=== PATIENT | male | born 1960 | race Caucasian/White ===

== ENCOUNTER 2017-02-03 13:43 | Emergency (ER) | payer OTHER, MEDICARE ==
[~2017-02-03] VITALS: Ht 177.8 cm; Wt 90.7 kg
[~2017-02-03 13:43] MED LIST: CARDIZEM CD240 M1 PO; LOSARTAN POTAS100 M1 PO; NEXIUM 40MG40 MG PO; PERCOCET 325 MG1 TAB PO; TOPROL XL25 M1 PO; VENLAFAXINE HCL75 M2 PO; VIBRAMYCIN 100100 MG PO
--- NOTE | 2017-02-03 14:17 | ED CARDIAC/CP/PALPITATIONS ---
History of Present Illness General Chief Complaint: Chest Pain Stated Complaint: CP Source: patient, family, old records Exam Limitations: no limitations Vital Signs & Intake/Output Vital Signs & Intake/Output Vital Signs Date Time Temp Pulse Resp B/P B/P Pulse O2 O2 Flow FiO2 Mean Ox Delivery Rate 02/03 1915 98.5 102 20 164/92 98 Room Air 02/03 1724 97.4 96 20 168/94 98 Room Air 02/03 1530 103 20 158/90 94 Room Air 02/03 1453 100 20 175/114 99 Room Air 02/03 1358 99 176/102 05/ 1353 97.9 101 18 195/145 98 Allergies Coded Allergies: Penicillins (Severe, THROAT SWELLING 02/03/17) latex (Severe, THROAT SWELLING 02/03/17) Reconcile Medications Aspirin (Aspirin*) 81 MG TAB.CHEW 1 TAB PO QPM HEART HEALTH (Reported) Atorvastatin Calcium 20 MG TABLET 1 TAB PO QPM CHOLESTEROL (Reported) Diltiazem HCl (Cardizem Cd) 240 MG CAP.ER.24H 1 CAP PO BID HEART (Reported) Losartan Potassium 100 MG TABLET 1 TAB PO QPM HEART (Reported) Metoprolol Succ XL (Toprol XL) 25 MG TAB 1 TAB PO QPM HEART (Reported) Omeprazole 20 MG CAPSULE.DR 1 CAP PO QPM GI (Reported) Venlafaxine HCl (Venlafaxine HCl ER) 75 MG TAB.ER.24 1 TAB PO QPM MENTAL HEALTH (Reported) Triage Note: PT PRESENTS TO ER C/O OF RIGHT SIDED CHEST PAIN SINCE YESTERDAY. PT STATES PAIN IS VERY SHARP ON RIGHT OF CHEST. PT DENIES SOB AND N/V. PT HAS A HX OF AFIB AND HTN. EKG DONE ON ARRIVAL, PT RHTHYM SINUC TACH. HR OF 100 Triage Nurses Notes Reviewed? yes Onset: Abrupt Duration: day(s): (2), intermittent Timing: recent history Quality/Severity: moderate, aching Location: r sided Radiation: no radiation Activities at Onset: none Prior Chest Pain/Card Workup: no prior chest pain Nitro Today/Relief: 0.4 mg x 1, provided by ED Aspirin Today: 325 mg x 1, provided by ED Associated Symptoms: denies HPI: 56-year-old male with history of paroxysmal A. fib that required ablation hypertension alcohol abuse presents complaining of a right-sided chest pain for the past 2 days came on at rest intermittent in nature. He reports it as sharp. He denies any back or arm pain his history significant for a right shoulder repair surgery in December. The pain is not worse with range of motion of his shoulder. He denies shortness of breath or pain with inspiration on arrival patient arrives hypertensive tachycardic. He is not taken anything for his symptoms and states that he's been compliant with all his medications however takes them at nighttime. The patient denies abdominal pain nausea vomiting no history of withdrawal in the past or alcohol. He is a daily drinker. He has recently been cutting back from 6 large glasses of vodka to one a day and his last drink was last night. There are no modifying factors or symptoms are not worse with exertion or change in position. pt denies drug use. (FOREIGN MORAN) Past History Travel History Traveled to [place] past 21 day No Medical History Any Pertinent Medical History? see below for history Cardiovascular: AFIB, hypertension Surgical History Surgical History: ablation Psychosocial History What is your primary language Setswana Tobacco Use: Quit >30 days ago ETOH Use: heavy use Family History Hx Contributory? No (FOREIGN MORAN) Review of Systems Review of Systems Constitutional: Reports: see HPI. All Other Systems: Reviewed and Negative Comments Review of systems: See HPI, All other systems negative. Constitutional, no chills no fever, no malaise HEENT: No visual changes no sore throat no congestion, no ear pain Cardiovascular: chest pain , no palpitation Skin: no rashes, no change in skin Respiratory: No dyspnea no cough no sputum GI: No nausea no vomiting, no diarrhea, no bloating/constipation : No dysuria Muscle skeletal: No joint pain, no joint swelling, no back pain, no neck pain, Neurologic: No numbness, no headache Psych: No stress. Heme/endocrine: No bruising no bleeding Immunology: No lymphadenopathy (FOREIGN MORAN) Physical Exam Physical Exam General Appearance: well developed/nourished, alert, awake Cardiovascular: tachycardia Comments: Well-developed well-nourished person in no acute distress HEENT: Normal EENT exam; PERRL, EOMI, HEAD is atraumatic. moist mucous membranes. Neck: Supple, normal range of motion Back: Nontender, no CVA tenderness. Full range of motion Cardiovascular: Regular rate and rhythms no murmurs rubs Respiratory: Chest nontender.There were no bony deformities, no asymmetry. No respiratory distress. Patient speaking in full complete sentences. Breath sounds clear to auscultation bilaterally: NO W/R/R Abdomen: Soft, nontender nondistended, no appreciable organomegaly. Normal bowel sounds. No rebound/guarding, Extremity: No edema, full range of motion of extremities Neuro: Alert oriented x3, motor sensory normal. There were no obvious focal neurologic abnormalities. Skin: No appreciable rash on exposed skin, skin is warm and dry. Psych: Mood and affect is normal, memory and judgment is normal. Core Measures ACS in differential dx? Yes Severe Sepsis Present: No Septic Shock Present: No (LUIS MARY,FOREIGN) Progress Differential Diagnosis: AMI, aortic dissection, atrial fibrillation, CHF/pulm edema, musculoskeletal pain, myocarditis, pancreatitis, pericarditis, pneumonia, pneumothorax, pulmonary embolism, PVCs/PACs, unstable angina, V-fib/V-Tach, ETOH WITHDRAWAL Plan of Care: Orders Procedure Date/time Status Regular Diet 02/04 B Active Regular Diet 02/03 D Complete TROPONIN LEVEL 02/03 1830 Complete EKG 02/03 1830 Active Telemetry/Jalousies Installer 02/03 1422 Active TROPONIN LEVEL 02/03 1422 Complete MAGNESIUM 02/03 1422 Complete ETHANOL 02/03 1422 Complete D-DIMER 02/03 1422 Complete COMPREHENSIVE METABOLIC PANEL 02/03 1422 Complete CBC WITHOUT DIFFERENTIAL 02/03 1422 Complete EKG 02/03 1344 Active Laboratory Tests 02/03/17 1817: Troponin I < 0.01 02/03/17 1437: Anion Gap 10, Estimated GFR > 60, BUN/Creatinine Ratio 25.6 H, Glucose 94, Calcium 9.1, Magnesium 1.5 L, Total Bilirubin 0.6, AST 24, ALT 43, Alkaline Phosphatase 56, Troponin I < 0.01, Total Protein 7.0, Albumin 4.2, Globulin 2.8, Albumin/Globulin Ratio 1.5, D-Dimer < 200, CBC w Diff NO MAN DIFF REQ, RBC 4.58 L, MCV 86.7, MCH 30.4, RDW 13.6, MPV 6.6 L, Gran % 59.1, Lymphocytes % 30.5, Monocytes % 8.6, Eosinophils % 1.1, Basophils % 0.7, Absolute Granulocytes 5.3, Absolute Lymphocytes 2.7, Absolute Monocytes 0.8 H, Absolute Eosinophils 0.1, Absolute Basophils 0.1, PUBS MCHC 35.1, Serum Alcohol < 10.0 Labs ordered patient medicated with Ativan 2 mg IV aspirin nitroglycerin On repeat evaluation patient's blood pressure noted to have improved I discussed them at length all of his lab results today pending CAT scan case was discussed with the patient was evaluated by Dr. Metcalf. We both discussed with the patient given his risk factors and vital signs upon admission that he should be admitted to the hospital for chest pain rule out. The patient states that he wants to wait until the CAT scan is back stating that he does not have these episodes right now wants to go home. I discussed with him the harm of this leaving prematurely despite her recommendations we will wait for CAT scan 02/03/2017 5:17:26 PM discussed with the patient is CAT scan findings incidental findings need for repeat troponin which she is in agreement with however the patient is again declining observation or admission Repeat troponin negative patient denies any pain discussed with him need for close follow-up with his primary care physician as well as orthopedic mechanic I also discussed the need to continue taking his blood pressure medication daily I discussed with the patient at length all of their results. I had an extensive conversation regarding need for close follow up with their primary care physician this week as well as return precautions. I answered all of their questions, they feel comfortable with the plan and follow-up care. (LUIS MARY,FOREIGN) Diagnostic Imaging: Viewed by Me: CT Scan. Discussed w/RAD: CT Scan. Radiology Impression: PATIENT: KIRAN IRVING PRESENT AGE: 56 PATIENT ACCOUNT NO: [id number] : 60 LOCATION: [facility] ORDERING PHYSICIAN: FOREIGN MARY SERVICE DATE: 02/03/176039 EXAM TYPE: CAT - CTA CHEST-PULMONARY EMBOLISM EXAMINATION: CT ANGIOGRAM OF THE CHEST WITH AND WITHOUT CONTRAST (CT PULMONARY ANGIOGRAM FOR PE) CLINICAL INFORMATION: Right -sided chest pain. COMPARISON: Chest x-ray 11/03/2010. TECHNIQUE: Prior to contrast administration, noncontrast localization images were obtained. Subsequently, multidetector volumetric imaging was performed from the thoracic inlet to below the diaphragms following the administration of 95 mL Optiray 350 intravenous contrast. No contrast reaction reported. Sagittal, coronal, and MIP oblique sagittal reformatted images were obtained on the CT workstation, uploaded to PACS, and reviewed. Total exam dose-length product 552.57 mGy-cm. FINDINGS: QUALITY OF STUDY/CONTRAST BOLUS: Satisfactory PULMONARY ARTERIES: No central or segmental pulmonary emboli. THORACIC AORTA: Atherosclerotic vascular wall calcifications of the aorta and great vessels. No aneurysm or dissection of the aorta. LUNG: There is subpleural blebs with associated subpleural reticular and ground-glass opacities at both upper lobes at lung apices. There is scattered ground-glass opacities also in the subpleural lung along the major and the minor fissures in the upper lobe and middle lobe. In the lower lobes there is scattered subpleural ground-glass opacities mostly at the dependent lung but also along the medial right and left lung bases. No bronchiectasis. Central bronchial airways are open. PLEURA: No pleural effusion or pneumothorax. MEDIASTINUM: Normal heart size. No pericardial effusion. No hilar or mediastinal lymphadenopathy. No evidence of septal bowing or right heart strain. Coronary artery calcifications. No pericardial effusion. CHEST WALL/AXILLA: No axillary or internal mammary lymphadenopathy. OSSEOUS STRUCTURES: Orthopedic plate and screw at lower cervical spine. UPPER ABDOMEN: Unremarkable. No reflux of contrast into the hepatic veins to suggest elevated right heart pressures. IMPRESSION: 1. No acute change. No evidence of pulmonary embolism. 2. Emphysematous subpleural blebs in lungs. Scattered reticular and ground-glass opacities of the subpleural lung bilaterally. The ground-glass opacities may be acute or chronic. VTE: negative DICTATED BY: MI COELHO MD DATE/TIME DICTATED: 02/03/171606 SURGICAL APPLIANCE FITTER:VI DATE/TIME TRANSCRIBED:02/03/171606 CONFIDENTIAL, DO NOT COPY WITHOUT APPROPRIATE AUTHORIZATION. <Electronically signed in Other Vendor System> SIGNED BY: MI COELHO MD 02/03/17 1647 Initial ED EKG: stach at 100, lad, no acute st seg changes Prior EKG: unchanged (08/2015) Repeat EKG: unchanged Rhythm Strip: normal sinus rhythm (FOREIGN MORAN) Departure Departure Disposition: HOME OR SELF CARE Condition: Stable Clinical Impression Primary Impression: Atypical chest pain Referrals: EMMA HAIDER MD (PCP/Family) Additional Instructions: follow up with your pmd as well as orthopedic mechanic tomorrow. return to the ER with any concerns or if your symtpoms worsen. stop drinking alcohol. Departure Forms: Customer Survey General Discharge Information (FOREIGN MORAN) PA/ORDER CLERK Co-Sign Statement Statement: ED Attending supervision documentation- [X] I saw and evaluated the patient. I have also reviewed all the pertinent lab results and diagnostic results. I agree with the findings and the plan of care as documented in the PA's/ORDER CLERK's documentation. [X] I have reviewed the ED Record and agree with the PA's/ORDER CLERK's documentation. [] Additions or exceptions (if any) to the PAs/ORDER CLERK's note and plan are summarized below: [] (PRATIBHA TREJO,ELE) Critical Care Note Critical Care Note Critical Care Time: non-applicable (FOREIGN MORAN)
[2017-02-03] MEDS ORDERED: OMEPRAZOLE20 M2 PO (14:19)
[2017-02-03] MEDS ORDERED: ASPIRIN81 M4 PO (14:19)
[2017-02-03] MEDS ORDERED: ATORVASTATIN CA20 M1 PO (14:20)
[2017-02-03 14:45] LABS: ABSOLUTE BASOPHIL COUNT 0.1 /CUMM (0.0-0.2); ABSOLUTE EOSINOPHIL COUNT 0.1 /CUMM (0.0-0.7); ABSOLUTE GRANULOCYTE CT 5.3 /CUMM (1.4-6.5); ABSOLUTE LYMPH COUNT 2.7 /CUMM (1.2-3.4); ABSOLUTE MONOCYTE COUNT 0.8 /CUMM (0.10-0.60); BASOPHIL % 0.7 % (0.0-2.0); EOSINOPHIL % 1.1 % (0-5); GRANULOCYTE % 59.1 % (42.2-75.2); HEMATOCRIT 39.7 % (42-52); MEAN CORPUSCULAR HGB 30.4 PG (27.0-31.0); MEAN CORPUSCULAR HGB CONC 35.1 G/DL (33.0-37.0); MEAN CORPUSCULAR VOLUME 86.7 FL (80.0-94.0); MEAN PLATELET VOLUME 6.6 FL (7.4-10.4); PLATELET COUNT 256 /CUMM (130-400); RBC DISTRIBUTION WIDTH 13.6 % (11.5-14.5); RED BLOOD CELL CT 4.58 /CUMM (4.70-6.10)
--- NOTE | 2017-02-03 16:47 | CT SCAN REPORT ---
EXAMINATION: CT ANGIOGRAM OF THE CHEST WITH AND WITHOUT CONTRAST (CT PULMONARY ANGIOGRAM FOR PE) CLINICAL INFORMATION: Right-sided chest pain. COMPARISON: Chest x-ray 11/03/2010. TECHNIQUE: Prior to contrast administration, noncontrast localization images were obtained. Subsequently, multidetector volumetric imaging was performed from the thoracic inlet to below the diaphragms following the administration of 95 mL Optiray 350 intravenous contrast. No contrast reaction reported. Sagittal, coronal, and MIP oblique sagittal reformatted images were obtained on the CT workstation, uploaded to PACS, and reviewed. Total exam dose-length product 552.57 mGy-cm. FINDINGS: QUALITY OF STUDY/CONTRAST BOLUS: Satisfactory PULMONARY ARTERIES: No central or segmental pulmonary emboli. THORACIC AORTA: Atherosclerotic vascular wall calcifications of the aorta and great vessels. No aneurysm or dissection of the aorta. LUNG: There is subpleural blebs with associated subpleural reticular and ground-glass opacities at both upper lobes at lung apices. There is scattered ground-glass opacities also in the subpleural lung along the major and the minor fissures in the upper lobe and middle lobe. In the lower lobes there is scattered subpleural ground-glass opacities mostly at the dependent lung but also along the medial right and left lung bases. No bronchiectasis. Central bronchial airways are open. PLEURA: No pleural effusion or pneumothorax. MEDIASTINUM: Normal heart size. No pericardial effusion. No hilar or mediastinal lymphadenopathy. No evidence of septal bowing or right heart strain. Coronary artery calcifications. No pericardial effusion. CHEST WALL/AXILLA: No axillary or internal mammary lymphadenopathy. OSSEOUS STRUCTURES: Orthopedic plate and screw at lower cervical spine. UPPER ABDOMEN: Unremarkable. No reflux of contrast into the hepatic veins to suggest elevated right heart pressures. IMPRESSION: 1. No acute change. No evidence of pulmonary embolism. 2. Emphysematous subpleural blebs in lungs. Scattered reticular and ground-glass opacities of the subpleural lung bilaterally. The ground-glass opacities may be acute or chronic. VTE: negative
[2017-02-03 19:15] VITALS: BP 164/92
== END 2017-02-03 19:16 ==
LOC: ERH 13:43
PROVIDERS: Physician Assistant Medical
DX: R07.89 Other chest pain (principal)
CPT/HCPCS: 93005; 93010; 96374; G0480; J3490

== ENCOUNTER 2017-10-15 17:36 | Emergency (ER) | payer OTHER, MEDICARE ==
[~2017-10-15 17:36] MED LIST changes: +ASPIRIN81 M4 PO; +ATORVASTATIN CA20 M1 PO; +NEXIUM40 M1 PO; +OMEPRAZOLE20 M2 PO; +VENLAFAXINE HC150 MG PO
[2017-10-15 18:11] LABS: ABSOLUTE BASOPHIL COUNT 0.1 /CUMM (0.0-0.2); ABSOLUTE EOSINOPHIL COUNT 0.2 /CUMM (0.0-0.7); ABSOLUTE GRANULOCYTE CT 5.1 /CUMM (1.4-6.5); ABSOLUTE LYMPH COUNT 3.8 /CUMM (1.2-3.4); ABSOLUTE MONOCYTE COUNT 0.8 /CUMM (0.10-0.60); BASOPHIL % 0.6 % (0.0-2.0); EOSINOPHIL % 1.6 % (0-5); GRANULOCYTE % 51.4 % (42.2-75.2); HEMATOCRIT 39.7 % (42-52); MEAN CORPUSCULAR HGB 31.1 PG (27.0-31.0); MEAN CORPUSCULAR HGB CONC 34.9 G/DL (33.0-37.0); MEAN CORPUSCULAR VOLUME 89.2 FL (80.0-94.0); MEAN PLATELET VOLUME 6.4 FL (7.4-10.4); PLATELET COUNT 444 /CUMM (130-400); RBC DISTRIBUTION WIDTH 13.1 % (11.5-14.5); RED BLOOD CELL CT 4.45 /CUMM (4.70-6.10)
--- NOTE | 2017-10-15 18:45 | ED CARDIAC/CP/PALPITATIONS ---
See Addendum History of Present Illness General Chief Complaint: Chest Pain Stated Complaint: CP S/P DETOXING ETOH Source: patient Exam Limitations: no limitations Vital Signs & Intake/Output Vital Signs & Intake/Output Vital Signs Date Time Temp Pulse Resp B/P B/P Pulse O2 O2 Flow FiO2 Mean Ox Delivery Rate 10/15 2110 99.0 103 18 144/86 98 10/15 1925 98.5 99 18 154/93 10/15 1925 98.5 99 18 154/93 98 Room Air Room Air 10/15 1749 98.8 106 18 134/78 97 Room Air Room Air Allergies Coded Allergies: Penicillins (Severe, ANAPHYLAXIS 10/15/17) latex (Severe, ANAPHYLAXIS 10/15/17) Reconcile Medications Aspirin (Aspirin*) 81 MG TAB.CHEW 1 TAB PO QPM HEART HEALTH (Reported) Atorvastatin Calcium (Lipitor) 40 MG TABLET 1 TAB PO DAILY CHOLESTEROL ( Reported) Diltiazem HCl (Cardizem Cd) 240 MG CAP.ER.24H 2 CAP PO DAILY HEART/BP ( Reported) Esomeprazole (Nexium) 40 MG CAPSULE.DR 1 CAP PO QPM GI (Reported) Losartan Potassium 100 MG TABLET 1 TAB PO QPM HEART (Reported) Metoprolol Succ XL (Toprol XL) 25 MG TAB 1 TAB PO QPM HEART (Reported) Venlafaxine HCl (Venlafaxine HCl ER) 150 MG CAP.ER.24H 1 CAP PO QPM MENTAL HEALTH (Reported) Venlafaxine HCl (Effexor XR) 37.5 MG CAP.ER.24H 1 CAP PO DAILY MENTAL HEALTH (Reported) Triage Note: PT TO TRIAGE FOR ETOH DETOX AND CHEST PAIN THAT STARTED YESTERDAY. PT DENIES HX OF SEIZURE, HE IS ALERT AND ORIENTED. STATES HE DRANK 5 SHOTS TODAY, WHICH IS ONLY A SMALL AMOUNT TO HER NORMAL. DENIES OTHER DRUGS, DENIES SI/HI Triage Nurses Notes Reviewed? yes Onset: Gradual Duration: constant Timing: recent history Quality/Severity: moderate Radiation: no radiation HPI: Patient is a 57-year-old male with a past medical history of atrial fibrillation status post ablation, hypertension ALCOHOL dependency who presents emergency room in which he states for the past 2 days he has tried to self discontinue his alcohol dependency due to his daughter's request. Patient states that yesterday he TRIED TO discontinue drinking alcohol however he began having chest discomfort, NAUSEA AND diaphoresis in which he immediately drank alcohol which improved his symptoms chest pain was resolved however symptoms today for concerns of tremors and diaphoresis and nausea recurred where he again drank alcohol no chest pain occurred today. Patient denies any suicidal or homicidal ideation denies any history of alcohol withdrawal seizures Denies any current chest pain shortness of breath or pain jaw pain nausea vomiting abdominal pain hemoptysis leg swelling Patient is requesting alcohol detox evaluation (Garcia Zhu) Past History Travel History Traveled to [place] past 21 day No Medical History Any Pertinent Medical History? see below for history Neurological: NONE EENT: NONE Cardiovascular: AFIB, hypertension Respiratory: NONE Gastrointestinal: NONE Hepatic: NONE Renal: NONE Musculoskeletal: NONE Psychiatric: NONE Endocrine: NONE Blood Disorders: NONE Cancer(s): NONE DIAMOND DIE MAKER/Reproductive: NONE Tetanus Vaccine: 06/19/17 Surgical History Surgical History: ablation Psychosocial History What is your primary language Sinhala Tobacco Use: Current Daily Use Daily Tobacco Use Amount/Type: => 5 Cigarettes daily ETOH Use: alcoholic Illicit Drug Use: denies illicit drug use Family History Hx Contributory? No (Garcia Zhu) Review of Systems Review of Systems Constitutional: Reports: see HPI. Denies: chills, fever. EENTM: Reports: no symptoms. Respiratory: Reports: no symptoms. Cardiovascular: Reports: no symptoms. GI: Reports: see HPI. Genitourinary: Reports: no symptoms. Musculoskeletal: Reports: no symptoms. Skin: Reports: no symptoms. Neurological/Psychological: Reports: see HPI. Hematologic/Endocrine: Reports: no symptoms. Immunologic/Allergic: Reports: no symptoms. All Other Systems: Reviewed and Negative (Garcia Zhu) Physical Exam Physical Exam General Appearance: no apparent distress, alert, obese Head: atraumatic Eyes: Bilateral: normal appearance, PERRL, EOMI. Ears, Nose, Throat: normal pharynx, normal ENT inspection, hearing grossly normal Neck: normal inspection, supple Respiratory: normal breath sounds, chest non-tender, no respiratory distress Cardiovascular: tachycardia Peripheral Pulses: 2+ radial (R) Gastrointestinal: normal bowel sounds, soft, non-tender Extremities: normal inspection, normal capillary refill, normal range of motion Skin: intact, normal color, warm/dry Core Measures ACS in differential dx? Yes CVA/TIA Diagnosis No Sepsis Present: No Sepsis Focused Exam Completed? No (Garcia Zhu) Progress Differential Diagnosis: AMI, aortic dissection, atrial fibrillation, cholecystitis, CHF/pulm edema, costochondritis, hyperkalemia, hypovolemia, hyperthyroid, hyperventilation, intracranial hemorrhage, musculoskeletal pain, myocarditis, pancreatitis, pericarditis, pneumonia, pneumothorax, PSVT, pulmonary embolism, PUD/GERD, PVCs/PACs, respiratory failure, sepsis, unstable angina, V-fib/V-Tach, WPW syndrome Plan of Care: Orders Procedure Date/time Status ETHANOL 10/15 2138 Complete TROPONIN LEVEL 10/15 2129 Complete EKG 10/15 2129 Active Telemetry/Data Analytics Analyst 10/15 192 Active Add-on Test (ER Only) 10/15 1918 Active CIWA 10/15 191 Active LIPASE 10/15 1750 Complete AMYLASE 10/15 175 Complete URINE DRUGS OF ABUSE 10/15 174 Complete TROPONIN LEVEL 10/15 174 Complete ETHANOL 10/15 174 Complete COMPREHENSIVE METABOLIC PANEL 10/15 174 Complete CBC WITHOUT DIFFERENTIAL 10/15 1746 Complete EKG 10/15 1738 Active Laboratory Tests 10/15/17 2139: Troponin I < 0.01, Serum Alcohol 74.0 10/15/17 2100: Serum Alcohol Cancelled 10/15/17 1805: Urine Opiates Screen < 100.00, Methadone Screen 103, Barbiturate Screen < 60, Ur Phencyclidine Scrn 7.30, Amphetamines Screen 251, U Benzodiazepines Scrn < 85, Urine Cocaine Screen < 50, Urine Cannabis Screen 7.10 10/15/17 1750: Anion Gap 19 H, Estimated GFR 57 L, BUN/Creatinine Ratio 13.1, Glucose 116 H, Calcium 8.6, Total Bilirubin 0.3, AST 36, ALT 32, Alkaline Phosphatase 65, Troponin I < 0.01, Total Protein 7.3, Albumin 4.2, Globulin 3.1, Albumin/ Globulin Ratio 1.4, Amylase 98, Lipase 123, CBC w Diff NO MAN DIFF REQ, RBC 4.45 L, MCV 89.2, MCH 31.1 H, RDW 13.1, MPV 6.4 L, Gran % 51.4, Lymphocytes % 38.5 , Monocytes % 7.9, Eosinophils % 1.6, Basophils % 0.6, Absolute Granulocytes 5.1 , Absolute Lymphocytes 3.8 H, Absolute Monocytes 0.8 H, Absolute Eosinophils 0.2, Absolute Basophils 0.1, PUBS MCHC 34.9, Serum Alcohol 139.0 Patient's initial EKG and blood work troponin were unremarkable. CIWA score will be ordered and evaluated patient denies any chest pain today second troponin will be ordered Discussed Hand off with Dr. Watts which second set troponin and CIWA SCORING IS PENDING. Initial ED EKG: normal QRS complex, normal sinus rhythm, SINUS TACHYCARDIA 101 BPM Hand-Off Endorsed To: Ti Watts MD Endorsed Time: 1953 Pending: labs (Garcia Zhu) Departure Departure Disposition: STILL A PATIENT Condition: Stable Clinical Impression Primary Impression: Alcohol dependence Secondary Impressions: Chest pain Referrals: Nahid Richter MD (PCP/Family) Departure Forms: Customer Survey General Discharge Information (Garcia Zhu) PA/BRASS SORTER Co-Sign Statement Statement: ED Attending supervision documentation- [] I saw and evaluated the patient. I have also reviewed all the pertinent lab results and diagnostic results. I agree with the findings and the plan of care as documented in the PA's/BRASS SORTER's documentation. [x] I have reviewed the ED Record and agree with the PA's/BRASS SORTER's documentation. [] Additions or exceptions (if any) to the PAs/BRASS SORTER's note and plan are summarized below: [] (Ti Watts MD) Critical Care Note Critical Care Note Critical Care Time: non-applicable (Garcia Zhu)
[2017-10-15] MEDS ORDERED: EFFEXOR XR37.5 M1 PO (19:37)
[2017-10-15] MEDS ORDERED: LIPITOR40 M1 PO (19:38)
--- NOTE | 2017-10-15 20:29 | RADIOLOGY REPORT ---
EXAMINATION: XR CHEST CLINICAL INFORMATION: Chest pain COMPARISON: CT chest 02/03/2017. Portable chest x-ray 08/20/2015 TECHNIQUE: 2 views of the chest were obtained. FINDINGS: Lungs are clear. No pulmonary vascular congestion. There is no pleural effusion. The heart size is normal. The cardiac and mediastinal contours are normal. There are multilevel degenerative changes of dorsal spine. Orthopedic plate and screw at lower cervical spine IMPRESSION: Unremarkable examination.
[2017-10-15 21:11] VITALS: BP 144/86
== END 2017-10-15 23:33 | disposition left against medical advice (07) ==
LOC: ERH 17:36
PROVIDERS: Emergency Medicine
DX: F10.20 Alcohol dependence, uncomplicated (principal); R07.89 Other chest pain
CPT/HCPCS: 71046; 80307; 93005; 93010; G0480